=== PATIENT | male | born 1970 | race Caucasian/White ===

== ENCOUNTER 2022-10-08 08:53 | Observation (INO) | payer OTHER, SELFPAY ==
--- NOTE | ~2022-10-08 | US_ITS ---
EXAMINATION: US abdomen limited DATE: 10/08/2022 09:36 INDICATION: Right upper quadrant pain and jaundice TECHNIQUE: Multiple grayscale and Doppler ultrasound images of the abdomen were obtained. COMPARISON: None FINDINGS: The visualized portions of the pancreatic body body are normal in appearance. The pancreatic head an d tail are not clearly visualized. Liver has normal echogenicity and contour, with a smooth surface. No liver lesion identified. No intrahepatic biliary duct dilation suspected. Portal venous flow was s een in the hepatopetal, normal direction and has normal Doppler waveform. The gallbladder is not defi nitively identified and may be either decompressed or surgically absent. There is no cholelithiasis. The common bile duct measures 3 mm, which is normal. Sonographic Estrella sign was reported as negative by the confectionery drops machine operator. The cephalad superior vena cava is normal. IMPRESSION: 1. Gallbladder is nonvisualized and may be either decompressed or surgically absent. Reviewed, dictated and finalized at location A. IMPRESSION: 1. Gallbladder is nonvisualized and may be either decompressed or surgically ab sent.
--- NOTE | ~2022-10-08 | CT_ITS ---
EXAMINATION: CT abdomen pelvis w con DATE: 10/08/2022 10:24 INDICATION: Right upper quadrant pain, jaundice and transaminitis TECHNIQUE: Computed tomography (CT) of the abdomen and pelvis was performed with 100 mL Omnipaque-350 intravenous contrast. Automated exposure control and iterative reconstruction technique were employe d. The dose-length product was 411.79 mGy-cm. COMPARISON: None FINDINGS: Lung bases are clear. Heart size is normal. No pericardial or pleural effusion. Aortic valve calcific ation. Small sliding-type hiatal hernia. Small region of focal hepatic steatosis at the ligamentum te res. Partially decompressed gallbladder is unremarkable. No intra or extrahepatic biliary ductal dila tion. Spleen, pancreas, bilateral adrenal glands and kidneys are normal. Bowels including the appendi x are normal. Tiny fat-containing umbilical hernia. Prominent diffuse bladder wall thickening mild pr ostatomegaly. No free intraperitoneal gas or fluid. No pathologically enlarged abdominal or pelvic ly mphadenopathy. Mild lumbar levocurvature with moderate lower lumbar spondylosis. IMPRESSION: 1. Normal liver and gallbladder with no intra or extra hepatic biliary ductal dilation. 2. Prominent diffuse bladder wall thickening suspicious for cystitis which could be either acute or c hronic. Correlate with urinalysis. Differential would also include chronic outlet obstruction from th e mildly enlarged prostate. Reviewed, dictated and finalized at location A. IMPRESSION: 1. Normal liver and gallbladder with no intra or extra hepatic biliary ductal d ilation. 2. Prominent diffuse bladder wall thickening suspicious for cystitis which coul d be either acute or chronic. Correlate with urinalysis. Differential would als o include chronic outlet obstruction from the mildly enlarged prostate.
--- NOTE | ~2022-10-08 | MR_ITS ---
EXAMINATION: MR MRCP wo/w con/w 3D wo ind DATE: 10/08/2022 13:43 INDICATION: Right upper quadrant abdominal pain, jaundice and transaminitis TECHNIQUE: Magnetic resonance imaging (MRI) of the abdomen was performed without and with 15 mL Multi emmanuel intravenous contrast. Sequences included coronal T2-weighted SS-FSE, coronal T2-weighted FS SS- FSE, coronal T2-weighted FS FIESTA, axial T2-weighted FS FIESTA, axial T2-weighted FIESTA, sagittal T 2-weighted SS-FSE, axial T1-weighted dual-echo FSPGR, axial T2-weighted SS-FSE, axial T1-weighted LAV A, axial T2-weighted STIR FSE. Thick-slab T2-weighted FRFSE-XL images were obtained for magnetic reso nance cholangiopancreatography (MRCP). Rotating maximum intensity projection 3-D reconstructions of t he volumetric data were created by the technologist. Postcontrast sequences included a time course of axial T1-weighted LAVA. COMPARISON: CT dated 10/08/2022 FINDINGS: ABDOMEN MRI: Heart size is normal. No pericardial or pleural effusion. Small sliding-type hiatal hernia. Liver, ga llbladder, spleen, pancreas, bilateral adrenal glands and kidneys are normal. Visualized portions of bowels including the appendix are normal. Tiny fat-containing umbilical hernia. No pathologically enl arged abdominal or upper pelvic lymphadenopathy. Mild lumbar levocurvature with mild lower lumbar spo ndylosis. There is enhancement associated with callus formation related to subacute fractures of the anterolateral right seventh and 7th-10th ribs as well as the tip of the right transverse process of L 1. ABDOMEN MRCP: No intra or extra hepatic biliary ductal dilation. The common bile duct measures 3 mm diameter which is normal. No strictures, obstructing stones or masses along the common bile duct.. IMPRESSION: 1. Normal decompressed gallbladder. No intra or extrahepatic biliary ductal dilation. 2. Healing fractures of the anterolateral right 7th-10th ribs and right transverse process of L1. Reviewed, dictated and finalized at location A. IMPRESSION: 1. Normal decompressed gallbladder. No intra or extrahepatic biliary ductal dil ation. 2. Healing fractures of the anterolateral right 7th-10th ribs and right transve rse process of L1.
[2022-10-08 09:06] VITALS: BP 131/76; PULSE 73; RESP 16; TEMP 36.3; O2SAT 99
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
[2022-10-08 09:29] LABS: Basophils Absolute Auto 0.1 K/mm3 (0.0-0.1); Basophils Percent Auto 1.2 % (0.2-1.2); Eosinophils Absolute Auto 0.6 K/mm3 (0-0.3); Eosinophils Percent Auto 6.9 % (0-4.4); Hematocrit 43.7 % (42.0-52.0); Hemoglobin 14.6 g/dL (14.0-18.0); Immature Granulocyte Absolute 0.01 K/mm3 (0.00-0.031); Immature Granulocyte Percent A 0.1 % (0-0.5); Lymphocytes Absolute Auto 1.33 K/mm3 (0.9-3.2); Lymphocytes Percent Auto 15.4 % (18.3-44.2); Mean Corpuscular HGB Conc 33.4 g/dl (32-36); Mean Corpuscular Hemoglobin 30.7 pg (26-34); Mean Corpuscular Volume 91.8 fl (80-100); Mean Platelet Volume 10.4 fl (7.4-10.4); Monocytes Absolute Auto 0.8 K/mm3 (0.1-0.6); Monocytes Percent Auto 9.4 % (2.6-8.5); Neutrophils Absolute Auto 5.8 K/mm3 (1.3-6.7); Platelet Count Result 302 k/mm3 (150-375); Red Blood Count 4.76 M/mm3 (4.6-6.20); Red Cell Distribution Width 14.5 % (11.5-14.5); White Blood Count 8.7 K/mm3 (4.5-10.0)
[2022-10-08 09:37] LABS: Ammonia 10 umol/L (9-30)
[2022-10-08 09:38] LABS: INR 0.9; Prothrombin Time 12.2 Seconds (11.1-14.7)
[2022-10-08 09:39] LABS: Partial Thromboplastin Time 28.2 SECONDS (22.3-36.8)
[2022-10-08 09:39] LABS: Albumin Level 4.8 g/dL (3.5-5.1); Alkaline Phosphatase 555 U/L (38-126); Anion Gap 11 mmol/L (8-16); Aspartate Amino Transferase 502 U/L (17-59); Bilirubin,Total 7.5 mg/dL (0.2-1.3); Blood Urea Nitrogen 16 mg/dL (9-20); Calcium 9.5 mg/dL (8.4-10.2); Carbon Dioxide 25 mmol/L (22-30); Chloride 100 mmol/L (98-107); Estimated CRCL calculation 98 ml/min; Estimated Glomerular Filt Rate > 60; Glucose 119 mg/dL (65-110); Potassium 4.1 mmol/L (3.4-5.0); Sodium 136 mmol/L (137-145)
[2022-10-08 09:40] LABS: Lipase 75 U/L (23-300)
[2022-10-08 09:55] LABS: Alanine Aminotransferase 1224 U/L (6-50)
[2022-10-08 10:38] LABS: Appearance Urine Clear (Clear); Bacteria Urine None Seen /hpf; Bilirubin Urine 3+ (Negative); Blood Urine Trace (Negative); Color Urine Dark Yellow (Yellow); Glucose Urine UA Negative (Negative); Ketones Urine 2+ mg/dL (Negative); Leukocyte Esterase Ur 1+ LEU/UL (Negative); Mucus Urine Present /lpf; Non Pathogenic Casts 0-2; Protein Urine 1+ mg/dL (Negative); RBC Urine 0-2 /hpf (0-2); Specific Grav Ur 1.024 (1.001-1.035); Squamous Epithelial Cell Urine None seen /hpf (Few); WBC Urine 0-5 /hpf; pH Urine 5.5 (5.0-9.0)
[2022-10-08 10:52] LABS: Add Urine Microscopic? YES
[2022-10-08 11:12] LABS: Hepatitis B Surface Antigen Negative (Negative)
[2022-10-08 11:17] LABS: HAV RESULT Negative (Negative); Hepatitis B Core IgM Result Negative (Negative)
[2022-10-08 11:22] LABS: Bilirubin Direct 3.4 mg/dL (0-0.3); Bilirubin Indirect 1.6 mg/dL (0-1.1)
[2022-10-08 11:29] VITALS: BP 137/72; PULSE 77; RESP 16; O2SAT 99
[2022-10-08 11:29] LABS: Hepatitis C Virus Antibody Negative (Negative)
[2022-10-08] MEDS: SODIUM CHLORIDE 0.9% IV 1,000 ML 999 ML IV CONT (11:34)
[2022-10-08 12:28] VITALS: BMI 25.2
[2022-10-08 12:35] VITALS: BP 147/66; PULSE 69; RESP 16; TEMP 36.5; O2SAT 100
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
[2022-10-08 13:51] LABS: Lactate Dehydrogenase 319 U/L (120-246)
[2022-10-08 14:51] LABS: Acetaminophen < 10 ug/mL (10-30)
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
--- NOTE | 2022-10-08 16:14 | ADMGEN ---
This patient, Bob Marte, was admitted to Medical Room 345-01. Patient/family oriented to hospital policies and general routines including ID bracelet, bed and alarms, visiting hours, pain management, procedures, bathroom and other care routines, personal items, smoking policy, room service/diet, and visiting hours. Information on how to activate the Rapid Response Team has been discussed. Patient/Family are encouraged to report perceived risks to care and to ask questions if they do not understand what they are told or what they should do.
[2022-10-08 16:45] LABS: Creatine Kinase 45 U/L (55-170)
[2022-10-08] MEDS: SODIUM CHLORIDE 0.9% IV 1,000 ML 150 ML IV CONT ×2 (16:58→21:13)
[2022-10-08 21:06] VITALS: BP 128/65; PULSE 69; RESP 18; TEMP 36.8; O2SAT 100
[2022-10-08] MEDS: lisinopriL 20 MG TABLET PO (21:12)
[2022-10-08 21:45] VITALS: O2SAT 99
[2022-10-09 04:40] VITALS: BP 116/61; PULSE 62; RESP 16; TEMP 36.6; O2SAT 99
[2022-10-09] MEDS: SODIUM CHLORIDE 0.9% IV 1,000 ML 150 ML IV CONT (05:38)
[2022-10-09 06:02] LABS: Hematocrit 37.3 % (42.0-52.0); Hemoglobin 12.6 g/dL (14.0-18.0); Mean Corpuscular HGB Conc 33.8 g/dl (32-36); Mean Corpuscular Hemoglobin 30.4 pg (26-34); Mean Corpuscular Volume 90.1 fl (80-100); Mean Platelet Volume 10.4 fl (7.4-10.4); Platelet Count Result 241 k/mm3 (150-375); Red Blood Count 4.14 M/mm3 (4.6-6.20); Red Cell Distribution Width 14.4 % (11.5-14.5); White Blood Count 6.5 K/mm3 (4.5-10.0)
[2022-10-09 06:26] LABS: Albumin Level 3.7 g/dL (3.5-5.1); Alkaline Phosphatase 418 U/L (38-126); Anion Gap 8 mmol/L (8-16); Aspartate Amino Transferase 365 U/L (17-59); Bilirubin,Total 7.6 mg/dL (0.2-1.3); Blood Urea Nitrogen 12 mg/dL (9-20); Calcium 8.7 mg/dL (8.4-10.2); Carbon Dioxide 26 mmol/L (22-30); Chloride 101 mmol/L (98-107); Estimated CRCL calculation 98 ml/min; Estimated Glomerular Filt Rate > 60; Glucose 100 mg/dL (65-110); Magnesium 1.9 mg/dL (1.6-2.3); Potassium 4.1 mmol/L (3.4-5.0); Sodium 135 mmol/L (137-145)
--- NOTE | 2022-10-09 06:48 | WPDGIPROGNO ---
Progress Note: A&P Assessment and Plan (1) Transaminitis: Code(s): R74.01 - Elevation of levels of liver transaminase levels Status: Acute Assessment and Plan: AST is 502 an ALT is greater than 1200. Likewise alkaline phosphatase is 555. Transaminases are trending downward. I have ordered additional blood work including serology for Rafita-Jarrell virus (2) Jaundice: Code(s): R17 - Unspecified jaundice Status: Acute Assessment and Plan: He noticed dark urine over the weekend and this has persisted. His current bilirubin is 3.4. Bilirubin today is over 7. (3) Acholic feces: Code(s): R19.5 - Other fecal abnormalities Status: Acute Assessment and Plan: Today he noticed that his stools were lacho-colored and that was 1 of the primary reasons he came to the emergency room because he realized that this was not a normal happening. MRCP fortunately was negative. No pancreatic mass. No biliary obstruction. Plan CT scan shows: 1. Normal liver and gallbladder with no intra or extra hepatic biliary ductal dilation. 2. Prominent diffuse bladder wall thickening suspicious for cystitis which could be either acute or chronic. Correlate with urinalysis. Differential would also include chronic outlet obstruction from the mildly enlarged prostate. bile duct obstruction is the most likely cause for his symptoms and laboratory findings. He does not have pain that would expect with choledocholithiasis. A pancreatic lesion is a possibility. Also viral etiologies possible. Studies for hepatitis are all negative. I would consider Rafita-Jarrell virus and mononucleosis however lymphocyte count is actually low, not high. He is hungry would like to eat tonight. I will order regular diet for tonight. I told that depending on results of his MRCP, he may need ERCP. Because he is able to eat and having no discomfort, I think that we could continue his investigation as an outpatient. Subjective Date/time seen: 10/09/22 06:48 He is up in a chair. He states he feels good. He did notice last night some discoloration of his sclera. He denies itching. He is not nauseated and tolerated his diet last night. MRCP was fortunately unremarkable, no lesions of the pancreas and no biliary dilatation. This morning's labs are pending but I told him that he may be able to be discharged and investigation continued as an outpatient. I told that this may be in fact probably has a viral process. Will check Rafita-Jarrell virus. Exam Const: General: cooperative and healthy appearing Orientation/consciousness: patient oriented x3 HENMT: Head: normal to inspection Ears: hearing grossly normal bilaterally Mouth: Yes Normal oral and palatal mucosa present Eyes: General: appearance normal, both eyes and all related structures Neck: Neck: normal visual inspection Chest: Chest palpation & inspection: normal inspection of the chest Resp: Effort & Inspection: normal respiratory effort Auscultation: clear to auscultation bilaterally Cardio: Rate: regular rate Rhythm: regular rhythm GI: Inspection: normal to inspection and other ( visible jaundice) Auscultation: normal bowel sounds Skin: General skin exam: normal color and jaundice Neuro: General: patient oriented x3 Speech: normal speech Objective Data Vital Signs Vital Signs: Vital Signs - 24 hr 10/08/22 09:06 10/08/22 11:29 10/08/22 12:35 Temperature 36.3 C L 36.5 C Pulse Rate 73 77 69 Respiratory Rate 16 16 16 Blood Pressure 131/76 137/72 147/66 H Pulse Oximetry 99 99 100 Oxygen Delivery Room Air 10/08/22 12:30 10/08/22 21:06 10/08/22 21:45 Temperature 36.8 C Pulse Rate 69 Respiratory Rate 18 Blood Pressure 128/65 Pulse Oximetry 100 99 Oxygen Delivery Room Air Room Air 10/09/22 04:40 Temperature 36.6 C Pulse Rate 62 Respiratory Rate 16 Blood Pressure 116/61 Pulse Oximetry 99 Oxygen Delivery Inta
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
[2022-10-09 08:09] LABS: Alanine Aminotransferase 877 U/L (6-50)
[2022-10-15 19:33] LABS: EBV Nuclear Ab Antibody <18.00 U/mL (<18.00); EBV Nuclear Ab Interpretation Negative; EBV Virus Capsid Ag IgG Ab <18.00 U/mL (<18.00); EBV Virus Capsid Ag IgM Ab <36.00 U/mL (<36.00)
--- NOTE | 2022-10-17 10:18 | PC.NURSE ---
EBV- all tests are WNL/negative. Dr. Lorin bradley.
== END 2022-10-09 11:24 | disposition home or self-care (01) ==
LOC: ANHED 11:47 → ANH3MED 10-09 07:09
PROVIDERS: Internal Medicine Gastroenterology; Physician Assistant; Admitting Provider Hospitalist; Emergency Provider Physician Assistant; PCP Internal Medicine; Visit Provider Nurse Practitioner
DX: R74.01 Elevation of levels of liver transaminase levels (principal); R17 Unspecified jaundice; R19.5 Other fecal abnormalities; S22.41XD Multiple fractures of ribs, right side, subsequent encounter for fracture with routine healing; N32.89 Other specified disorders of bladder; I10 Essential (primary) hypertension; H15.9 Unspecified disorder of sclera; R11.0 Nausea; Q23.1 Congenital insufficiency of aortic valve; N40.0 Benign prostatic hyperplasia without lower urinary tract symptoms; I48.91 Unspecified atrial fibrillation; Z79.82 Long term (current) use of aspirin; Z79.899 Other long term (current) drug therapy
CPT/HCPCS: 36415; 74177; 74183; 76376; 76705; 80053; 80074; 80307; 81001; 82140; 82248; 82550; 82728; 83615; 83690; 83735; 85025; 85027; 85610; 85730; 86664; 86665; 96360; 96361; 99285; A9270; A9577; G0378; J7030; Q9967

== ENCOUNTER 2022-10-15 07:20 | Outpatient (CLI) | payer OTHER, SELFPAY ==
[2022-10-15 08:17] LABS: Alanine Aminotransferase 716 U/L (6-50); Albumin Level 4.8 g/dL (3.5-5.1); Alkaline Phosphatase 390 U/L (38-126); Aspartate Amino Transferase 241 U/L (17-59); Bilirubin,Total 9.3 mg/dL (0.2-1.3)
[2022-10-15 08:37] LABS: Monoscreen Negative (Negative); Negative Monotest Control Negative (Negative); Positive Monotest Control Positive (Positive)
== END 2022-10-15 07:21 | disposition home or self-care (01) ==
PROVIDERS: PCP Internal Medicine; Visit Provider Internal Medicine Gastroenterology
DX: R74.01 Elevation of levels of liver transaminase levels (principal)
CPT/HCPCS: 36415; 80076; 86308

== ENCOUNTER 2022-11-17 06:56 | Outpatient (CLI) | payer OTHER, SELFPAY ==
[2022-11-17 08:09] LABS: Alanine Aminotransferase 516 U/L (6-50); Alkaline Phosphatase 189 U/L (38-126); Aspartate Amino Transferase 288 U/L (17-59); Bilirubin,Total 2.2 mg/dL (0.2-1.3)
== END 2022-11-17 06:57 | disposition home or self-care (01) ==
LOC: ANHLAB 06:57
PROVIDERS: PCP Internal Medicine; Visit Provider Internal Medicine Gastroenterology
DX: R17 Unspecified jaundice (principal); R74.01 Elevation of levels of liver transaminase levels
CPT/HCPCS: 36415; 80076

== ENCOUNTER 2022-11-18 09:08 | Outpatient (CLI) | payer OTHER, SELFPAY ==
[2022-11-18 09:55] LABS: Basophils Absolute Auto 0.1 K/mm3 (0.0-0.1); Basophils Percent Auto 0.9 % (0.2-1.2); Eosinophils Absolute Auto 0.2 K/mm3 (0-0.3); Hematocrit 41.1 % (42.0-52.0); Hemoglobin 13.8 g/dL (14.0-18.0); Immature Granulocyte Absolute 0.01 K/mm3 (0.00-0.031); Immature Granulocyte Percent A 0.2 % (0-0.5); Lymphocytes Absolute Auto 1.79 K/mm3 (0.9-3.2); Mean Corpuscular HGB Conc 33.6 g/dl (32-36); Mean Corpuscular Hemoglobin 30.5 pg (26-34); Mean Corpuscular Volume 90.9 fl (80-100); Monocytes Absolute Auto 0.6 K/mm3 (0.1-0.6); Monocytes Percent Auto 8.9 % (2.6-8.5); Neutrophils Absolute Auto 3.8 K/mm3 (1.3-6.7); Platelet Count Result 306 k/mm3 (150-375); Red Blood Count 4.52 M/mm3 (4.6-6.20); White Blood Count 6.4 K/mm3 (4.5-10.0)
[2022-11-18 10:12] LABS: Iron 121 ug/dL (49-181)
[2022-11-18 10:21] LABS: Percent Iron Saturation 22 % (20-50)
[2022-11-20 21:49] LABS: Mitochondrial (M2) Ab (IgG) <=20.0 U (<=20.0)
== END 2022-11-18 09:09 | disposition home or self-care (01) ==
PROVIDERS: PCP Internal Medicine; Visit Provider Internal Medicine Gastroenterology
DX: R17 Unspecified jaundice (principal); D72.821 Monocytosis (symptomatic)
CPT/HCPCS: 36415; 83520; 83540; 83550; 85025; 86038